=== PATIENT | female | born 1990 | race African-American/Black ===

== ENCOUNTER 2016-10-04 17:31 | Emergency (ER) | payer BC, OTHER ==
[~2016-10-04] VITALS: Ht 170.2 cm; Wt 68.0 kg
[~2016-10-04 17:31] MED LIST: ALBU8.5H6 IH; BENZ100C PO; ONDA4TAB10 SL; PRED50TA PO
[2016-10-04 18:00] VITALS: BP 110/60
[2016-10-04] MEDS ORDERED: GABA-586 PO (19:03)
[2016-10-04] MEDS ORDERED: NAPR500T3 PO (19:03)
--- NOTE | 2016-10-04 19:04 | PHYS DOC ---
Past Medical History Past Medical History: No Pertinent History, Asthma Past Surgical History: Other Additional Past Surgical Histo: BILATERAL EYE SX FOR MUSCLE CORRECTION Alcohol Use: None Drug Use: None Adult General Chief Complaint Chief Complaint: FOOT INJURY PAIN HPI HPI Patient is a 26 year old female who presents today with mild right fourth and fifth toe pain that began this morning when she got up. Patient describes the pain as sharp. She states she has some numbness and tingling to the toe. Patient denies any trauma. Denies any back pain. Denies any history of sciatica. She states she can ambulate and the pain occurs intermittently depending on how she applies pressure on the foot. Review of Systems Review of Systems Constitutional: Denies fever or chills [] GI: Denies abdominal pain, nausea, vomiting, bloody stools or diarrhea [] : Denies dysuria or hematuria [] Musculoskeletal: right fourth and fifth toe pain Integument: Denies rash or skin lesions [] Neurologic: Denies headache, focal weakness or sensory changes [] Allergies Allergies Allergies Coded Allergies Type Severity Reaction Last Updated Verified No Known Drug Allergies 10/19/15 No Physical Exam Physical Exam Constitutional: Well developed, well nourished, no acute distress, non-toxic appearance. [] Abdomen: Bowel sounds normal, soft, no tenderness, no masses, no pulsatile masses. [] Skin: Warm, dry, no erythema, no rash. [] Back: No tenderness, no CVA tenderness. [] Extremities: No tenderness, no cyanosis, no clubbing, ROM intact, no edema. [] Neurologic: Alert and oriented X 3, normal motor function, normal sensory function, no focal deficits noted. [] Psychologic: Affect normal, judgement normal, mood normal. [] Current Patient Data Vital Signs Vital Signs Date Time Temp Pulse Resp B/P (MAP) Pulse Ox O2 Delivery O2 Flow Rate FiO2 10/04/16 18:00 99.1 71 14 97 Room Air 99.1 EKG EKG [] Radiology/Procedures Radiology/Procedures [] Course & Med Decision Making Course & Med Decision Making Pertinent Labs and Imaging studies reviewed. (See chart for details) Patient is in the ED with complaints of right fourth and fifth toe pain with numbness and tingling that began this morning. No known trauma. X-rays of the right foot [address] Dwayne were negative for any acute findings. Patient has paraesthesia. Discharged with gabapentin and naproxen. Ice elevation encouraged. Follow-up with orthopedic doctor provided in 1-2 weeks. Jorge Disclaimer Jorge Disclaimer This electronic medical record was generated, in whole or in part, using a voice recognition dictation system. Departure Departure Impression: Primary Impression: Paresthesia of right foot Additional Impression: Foot pain, right Disposition: 01 HOME, SELF-CARE Condition: STABLE Referrals: NO PCP (PCP) TRINA HINKLE MD follow up in one week Patient Instructions: Paresthesia, [id number] Additional Instructions: You were seen for right foot pain with numbness to your fourth and fifth toes. Ice and elevate the extremities. Take the prescribed medicines as needed. Follow -up with orthopedic doctor provided in one week if symptoms continue. Scripts Gabapentin (GABAPENTIN) 300 Mg Capsule 300 MG PO TID, #20 CAP Prov: CAMERON MONTEIRO APRN 10/04/16 Naproxen (NAPROXEN) 500 Mg Tablet 1 TAB PO BID, #20 TAB 0 Refills Prov: CAMERON MONTEIRO APRN 10/04/16 Problem Qualifiers CAMERON MONTEIRO APRN Oct 04, 2016 19:04
--- NOTE | 2016-10-07 08:34 | RAD ---
Right foot, 3 views, 10/04/2016: History: Foot pain No fracture or dislocation is identified. There is minimal spurring at the PIP joint of the little toe. The soft tissues are unremarkable. IMPRESSION: No acute right foot abnormality is detected.
== END 2016-10-04 19:13 | disposition home or self-care (01) ==
LOC: ER 17:31
DX: R20.9 Unspecified disturbances of skin sensation (principal); M79.671 Pain in right foot; M79.674 Pain in right toe(s); R20.2 Paresthesia of skin; R20.0 Anesthesia of skin; J45.909 Unspecified asthma, uncomplicated
CPT/HCPCS: 73630; 99284

== ENCOUNTER 2017-02-05 09:13 | Emergency (ER) | payer OTHER ==
[~2017-02-05] VITALS: Ht 170.2 cm; Wt 68.0 kg
[~2017-02-05 09:13] MED LIST changes: +GABA-586 PO; +NAPR500T4 PO
[2017-02-05 09:23] VITALS: BP 112/60
[2017-02-05] MEDS ORDERED: TETRACAINE 0.5% OPHTH SOLUTION 4ML BOTTLE. OS ONE (09:30)
[2017-02-05] MEDS ORDERED: FLUORESCEIN OPHTH TEST STRIP. OS ONE (09:30)
[2017-02-05] MEDS ORDERED: ERYT1OIN6 OP (10:26)
--- NOTE | 2017-02-05 10:26 | PHYS DOC ---
Past Medical History Past Medical History: Asthma Past Surgical History: Other Additional Past Surgical Histo: BILATERAL EYE SX FOR MUSCLE CORRECTION Alcohol Use: None Drug Use: None Adult General Chief Complaint Chief Complaint: EYE PROBLEMS HPI HPI Patient is a 26 year old female who presents with a scratch to the right eye. Patient states she was removing her contacts yesterday and scratched her eye. Patient denies any vision loss. Review of Systems Review of Systems Constitutional: Denies fever or chills [] Eyes: scratch to the right eye. Denies change in visual acuity Musculoskeletal: Denies back pain or joint pain [] Integument: Denies rash or skin lesions [] Neurologic: Denies headache, focal weakness or sensory changes [] All other systems were reviewed and found to be within normal limits, except as documented in this note. Current Medications Current Medications Current Medications Medications (Trade) Dose Ordered Sig/Harpreet Start Time Stop Time Status Last Admin Dose Admin Fluorescein Sodium (Ful-[place]) 1 strip 1X ONCE 02/05/17 09:30 02/05/17 09:31 DC Tetracaine HCl (Tetracaine) 1 drop 1X ONCE 02/05/17 09:30 12 09:31 DC Allergies Allergies Allergies Coded Allergies Type Severity Reaction Last Updated Verified No Known Drug Allergies 10/19/15 No Physical Exam Physical Exam Constitutional: Well developed, well nourished, no acute distress, non-toxic appearance. [] HENT: Normocephalic, atraumatic, bilateral external ears normal, oropharynx moist, no oral exudates, nose normal. [] Eyes: PERRLA, EOMI, right conjunctiva is mildly injected with clear discharge. see procedure note for visual exam Skin: Warm, dry, no erythema, no rash. [] Back: No tenderness, no CVA tenderness. [] Extremities: No tenderness, no cyanosis, no clubbing, ROM intact, no edema. [] Neurologic: Alert and oriented X 3, normal motor function, normal sensory function, no focal deficits noted. [] Psychologic: Affect normal, judgement normal, mood normal. [] Current Patient Data Vital Signs Vital Signs Date Time Temp Pulse Resp B/P (MAP) Pulse Ox O2 Delivery O2 Flow Rate FiO2 02/05/17 09:23 99.1 98 18 99 Room Air 99.1 EKG EKG [] Radiology/Procedures Radiology/Procedures Indication: right eye scratch Procedure: The area of the foreign body was right eye. Local anesthesia over the foreign body site was 2 drops of tetracaine then the eye was stained with fluorescein. A tiny corneal abrasion noted on the right cornea at the 16:00 position. The patient tolerated the procedure well Complications: well Course & Med Decision Making Course & Med Decision Making Pertinent Labs and Imaging studies reviewed. (See chart for details) Corneal abrasion noted to the right cornea. Tetanus is up to date. D/C with Erythromycin. F/u with director of operations for therapy in 1 week or sooner if need be. Dragon Disclaimer Dragon Disclaimer This electronic medical record was generated, in whole or in part, using a voice recognition dictation system. Departure Departure Impression: Primary Impression: Right corneal abrasion Disposition: HOME, SELF-CARE Condition: STABLE Referrals: NO PCP (PCP) ISRAEL GONZALEZ MD follow up in one week Patient Instructions: Eye - Corneal Abrasion, [id number] Additional Instructions: You were seen for corneal abrasion to the right eye. Use the prescribed eye ointment as ordered. Follow-up with the provided director of operations for therapy in 1-2 weeks as needed. Return to the ED at any point symptoms worsen. Scripts Erythromycin Base (Erythromycin) 1 Gm Oint...g. 1 NEY OP Q4HRS W/A for 7 Days, #1 MISC Prov: CAMERON MONTEIRO APRN 02/05/17 Problem Qualifiers Primary Impression: Right corneal abrasion Encounter type: initial encounter Qualified Codes: S05.01XA - Injury of conjunctiva and corneal abrasion without foreign body, right eye, initial encounter CAMERON MONTEIRO APRN Feb 05, 2017 10:26
== END 2017-02-05 10:49 | disposition home or self-care (01) ==
LOC: ER 09:13
DX: S05.01XA Injury of conjunctiva and corneal abrasion without foreign body, right eye, initial encounter (principal); J45.909 Unspecified asthma, uncomplicated; W50.4XXA Accidental scratch by another person, initial encounter; Y93.89 Activity, other specified; Y99.8 Other external cause status; Y92.89 Other specified places as the place of occurrence of the external cause
CPT/HCPCS: 99283

== ENCOUNTER 2017-03-27 14:40 | Emergency (ER) | payer BC, OTHER | END 2017-03-27 15:57 | disposition home or self-care (01) | LOC: ER 14:40 | DX: H10.9 Unspecified conjunctivitis (principal); J45.909 Unspecified asthma, uncomplicated | CPT/HCPCS: 99283 ==

== ENCOUNTER 2020-11-04 06:17 | Emergency (ER) | payer OTHER, BC ==
[~2020-11-04] VITALS: Ht 160 cm; Wt 80.0 kg
[~2020-11-04 06:17] MED LIST changes: +ERYT1OIN6 OP; -GABA-586 PO; +GABA300C18 PO; +NAPR-514 PO; -NAPR500T4 PO; +OFLO5DRO EACHEYE
[2020-11-04 06:29] VITALS: BP 122/67
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
== END 2020-11-04 07:16 | disposition home or self-care (01) ==
LOC: ER 06:17
DX: S16.1XXA Strain of muscle, fascia and tendon at neck level, initial encounter (principal); S39.012A Strain of muscle, fascia and tendon of lower back, initial encounter; J45.909 Unspecified asthma, uncomplicated; V43.53XA Car driver injured in collision with pick-up truck in traffic accident, initial encounter; Y93.89 Activity, other specified; Y92.488 Other paved roadways as the place of occurrence of the external cause; Y99.8 Other external cause status
CPT/HCPCS: 99282